=== PATIENT | female | born 1940 | race Caucasian/White ===

== ENCOUNTER 2016-07-22 07:52 | Day surgery (SDC) | payer OTHER ==
[~2016-07-22] VITALS: Ht 165.1 cm; Wt 71.7 kg
[~2016-07-22 07:52] MED LIST: BP MED; FLUT12AE5
[2016-07-22] MEDS ORDERED: CEFAZOLIN SOD 1 GM in D5W 50 ML IV ONE (08:00)
[2016-07-22 08:26] VITALS: O2SAT 97
[2016-07-22] MEDS ORDERED: PROPOFOL 200MG/ 20ML VIAL (DIPRIVAN) IV ONE (11:42)
[2016-07-22] MEDS ORDERED: SEVOFLURANE 15 MIN GAS INH ONE (11:42)
[2016-07-22] MEDS ORDERED: ONDANSETRON HCL 4 MG/2 ML VIAL IVP ONE (11:42)
[2016-07-22] MEDS ORDERED: MIDAZOLAM HCL 5 MG/5 ML VIAL IVP ONE (11:42)
[2016-07-22] MEDS ORDERED: fentaNYL CITRATE/PF 100 MCG/2 ML AMP IVP ONE (11:42)
[2016-07-22] MEDS ORDERED: BUPIVACAINE /EPINEPHRINE/PF 0.25% 30 ML VIAL INJ ONE (11:42)
[2016-07-22] MEDS ORDERED: MEPERIDINE HCL/PF 100 MG/ML AMP IM ONE (11:42)
[2016-07-22] MEDS ORDERED: METOCLOPRAMIDE HCL 10 MG/2 ML VIAL IVP ONE (11:42)
[2016-07-22] MEDS ORDERED: LR 1,000 ML IV ONE (12:43)
[2016-07-22] MEDS ORDERED: fentaNYL CITRATE/PF 100 MCG/2 ML AMP IVP PRN (12:45)
[2016-07-22] MEDS ORDERED: ONDANSETRON HCL 4 MG/2 ML VIAL IVP PRN ×2 (12:45)
[2016-07-22] MEDS ORDERED: NALOXONE HCL 0.4 MG/ML AMP (NARCAN) IVP PRN (12:45)
[2016-07-22] MEDS ORDERED: NALBUPHINE HCL 10 MG/ML AMP IVP PRN (12:45)
[2016-07-22] MEDS ORDERED: DIPHENHYDRAMINE INJ 50 MG/ML VIAL IVP PRN (12:45)
[2016-07-22] MEDS ORDERED: ePHEDrine sulfate 50 MG/ML VIAL IVP PRN (12:45)
[2016-07-22] MEDS ORDERED: HYDROmorphone 1 MG INJ. 1 MG/ML AMPUL IVP PRN (13:15)
[2016-07-22] MEDS ORDERED: HYDROcodone/ACETAMIN 5-325 MG TAB (NORCO/ VICODIN) PO PRN ×2 (13:15)
[2016-07-22 14:30] VITALS: BP 129/72; PULSE 87; RESP 16
[2016-07-22] MEDS ORDERED: D5/0.45 NS 1,000 ML IV SCH (15:30)
== END 2016-07-22 16:00 | disposition home or self-care (01) ==
LOC: SMU 07:52 → SDS 07:52
PROVIDERS: ATTEND Colon & Rectal Surgery
DX: C50.212 Malignant neoplasm of upper-inner quadrant of left female breast (principal); J44.9 Chronic obstructive pulmonary disease, unspecified; J45.909 Unspecified asthma, uncomplicated; I10 Essential (primary) hypertension; K21.9 Gastro-esophageal reflux disease without esophagitis
CPT/HCPCS: 19281; 19301; 38500; 78195; 88305; 88307; 88329; 88333; 88342; A9541; J0690; J2175; J2250; J2405; J2704; J2765; J3010; J3490; J7060; J7120; 19081

== ENCOUNTER 2022-12-05 16:32 | Inpatient (IN) | payer OTHER ==
[~2022-12-05] VITALS: Ht 160 cm; Wt 62.6 kg
--- NOTE | 2022-12-05 16:38 | NUR ---
Patient to ER bed 04 to gown for evaluation. Side rails up.
--- NOTE | 2022-12-05 16:46 | NUR ---
ER Dr.Dela Faust at bedside examining patient.
[2022-12-05 17:09] VITALS: BP_SYST 155; PULSE 89; RESP 18; TEMP 98.3; O2SAT 98
[2022-12-05 17:38] LABS: BASOPHILS # (AUTO) 0.1 K/uL (0.0-0.2); EOSINOPHILS # (AUTO) 0.6 K/uL (0.0-0.4); HEMATOCRIT 29.5 % (36-48); HEMOGLOBIN 10.1 g/dL (12.0-16.0); MEAN CORPUSCULAR HEMOGLOBIN 31 pg (27-31); MEAN CORPUSCULAR HGB CONC 34 % (32-36); MEAN CORPUSCULAR VOLUME 90 fL (79.0-98.0); MONOCYTES # (AUTO) 0.8 K/uL (0.0-1.0); MONOCYTES % (AUTO) 7.3 % (1.7-9.3); NEUTROPHILS # (AUTO) 8.5 K/uL (1.8-7.7); NEUTROPHILS % (AUTO) 77.7 % (40.0-70.0); PLATELET COUNT (AUTO) 181 K/uL (130-430); RED BLOOD CELL COUNT(AUTO) 3.27 MIL/uL (4.2-6.2); RED CELL DISTRIBUTION WIDTH 15.1 % (9.0-15.0); WHITE BLOOD COUNT (AUTO) 10.9 K/uL (4.8-10.8)
[2022-12-05 17:54] LABS: ALANINE AMINOTRANSFERASE 15 U/L (12-78); ALBUMIN 3.3 g/dL (3.4-4.8); ANION GAP 7 (5-15); ASPARTATE AMINOTRANSFERASE 16 U/L (10-37); CHLORIDE 103 mmol/L (98-107); CREATININE 0.99 mg/dL (0.55-1.30); GLUCOSE 115 mg/dL (74-106); TOTAL BILIRUBIN 0.5 mg/dL (0.0-1.0); UREA NITROGEN, BLOOD 16 mg/dL (8-21)
[2022-12-05] MEDS ORDERED: CARV12.548 PO (17:58)
[2022-12-05] MEDS ORDERED: ALBMDI INH (17:58)
[2022-12-05] MEDS ORDERED: ASPI-1393 PO (17:58)
[2022-12-05] MEDS ORDERED: [UNRECOGNIZED DRUG - CODE] PO (17:58)
[2022-12-05] MEDS ORDERED: ROSU10TA2 PO (17:58)
[2022-12-05] MEDS ORDERED: TORS20TA23 PO (17:58)
[2022-12-05] MEDS ORDERED: LOSA50TA3 PO (17:58)
[2022-12-05] MEDS ORDERED: FERR236T3 PO (17:58)
[2022-12-05] MEDS ORDERED: PRO40 PO (17:58)
--- NOTE | 2022-12-05 17:58 | NUR ---
Medication reconciliation completed with information provided by patient . Any prior medication reconciliation on file was reviewed and corrected.
--- NOTE | 2022-12-05 18:20 | NUR ---
[address] WAY VELAZQUEZ INSERTED WITH APPROX 800 DARK RED URINE OUTPUT, BLADDER IRRIGATION STARTED ORDERED. MINIMAL SMALL CLOTS NOTED, PT TOLERATING WELL.
--- NOTE | 2022-12-05 18:36 | NUR ---
DR MEDELLIN INFORMED OF PT'S DISCOMFORT AND HIGH BP 176/89
[2022-12-05 18:43] LABS: BILIRUBIN,URINE NEGATIVE (NEGATIVE); BLOOD, URINE 3+ (NEGATIVE); CLARITY/URINE TURBID (CLEAR); COLOR,URINE RED (YELLOW); GLUCOSE,URINE NEGATIVE (NEGATIVE); KETONES,URINE NEGATIVE (NEGATIVE); LEUKOCYTE ESTERASE ,URINE TRACE (NEGATIVE); NITRITE, URINE NEGATIVE (NEGATIVE); PH,URINE 6.5 (5.0-8.0); PROTEIN URINE 3+ (NEGATIVE); UROBILINOGEN,URINE 0.2 (0.2-1.0)
[2022-12-05] MEDS ORDERED: ONDANSETRON HCL 4 MG/2 ML VIAL IVP ONE (19:00)
[2022-12-05] MEDS ORDERED: MORPHINE 4 MG INJ. 4 MG/ML VIAL IVP ONE (19:00)
--- NOTE | 2022-12-05 19:09 | NUR ---
REPORT GIVEN TO YUE RN, VITALS AND UPDATED STATUS INFORMED.
--- NOTE | 2022-12-05 19:24 | NUR ---
THREE WAY VELAZQUEZ CLOGGED, VELAZQUEZ UNCLOGGED AT THIS TIME AND FLOWING
--- NOTE | 2022-12-05 19:24 | NUR ---
ASSUMED PATIENT CARE AT THIS TIME
[2022-12-05] MEDS ORDERED: hydrALAZINE HCL 20 MG/ML VIAL IVP ONE (19:30)
[2022-12-05] MEDS ORDERED: ENALAPRILAT DIHYDRATE 1.25 MG/ML VIAL IVP ONE (19:30)
[2022-12-05 19:38] LABS: BACTERIA,URINE MODERATE /HPF (None Seen); MUCUS,URINE None Seen /LPF (None Seen); RBC,URINE >100 /HPF (0-3)
--- NOTE | 2022-12-05 19:53 | NUR ---
Admit bed requested Patient will be admitted to care of . Admitted to unit. Diagnosis Inpatient (Yes or No) Observation (Yes or No) Orientation concerns or request close to nursing station (Yes or No) Covid Status On vent or bipap Isolation requirements Needs a sitter From Home (Yes or if No enter name of facility) Requires Dialysis (Yes or No) Med Rec Completed (Yes of No)
--- NOTE | 2022-12-05 20:00 | NUR ---
Report received from previous Nurse for continuity of care.
--- NOTE | 2022-12-05 20:13 | NUR ---
Admit bed requested Patient will be admitted to care of Dr.. FRIAS Admitted to unit. [facility] Diagnosis HEMATURIA, BLADDER CANCER Inpatient (Yes or No)YES Observation (Yes or No) NO Orientation concerns or request close to nursing station (Yes or No) NO Covid Status N/A On vent or bipap NO Isolation requirements NO Needs a sitter NO From Home (Yes or if No enter name of facility) YES Requires Dialysis (Yes or No) NO Med Rec Completed (Yes of No) YES
[2022-12-05] MEDS ORDERED: ACETAMINOPHEN 325 MG TABLET PO PRN (20:30)
[2022-12-05] MEDS ORDERED: NALOXONE HCL 0.4 MG/ML AMP (NARCAN) IVP PRN ×2 (20:30)
[2022-12-05] MEDS ORDERED: HYDROcodone/ACETAMIN 5-325 MG TAB (NORCO/ VICODIN) PO PRN (20:30)
[2022-12-05] MEDS ORDERED: LORazepam 2 MG/ML VIAL IVP PRN (20:30)
[2022-12-05] MEDS ORDERED: ONDANSETRON HCL 4 MG/2 ML VIAL IVP PRN (20:30)
[2022-12-05] MEDS: cefTRIAXone 1 GM IVPB PREMIX 50 ML IV SCH (20:38)
[2022-12-05] MEDS: ALBUTEROL SULFATE 0.083% 2.5 MG/3 ML VIAL.NEB INH SCH (20:42)
[2022-12-05] MEDS ORDERED: BUDESONIDE 0.5 MG/2 ML AMPUL.NEB INH SCH (21:00)
[2022-12-05] MEDS: CARVEDILOL 12.5 MG TABLET (COREG) PO SCH (21:00)
[2022-12-05] MEDS ORDERED: ROSUVASTATIN CALCIUM 5 MG/TAB (CRESTOR) PO SCH (21:00)
[2022-12-05] MEDS: ATORVASTATIN 20 MG TABLET PO SCH (21:00)
[2022-12-05] MEDS: NORMAL SALINE 5 ML DISP.SYRIN IVF SCH (22:10)
--- NOTE | 2022-12-05 22:11 | NUR ---
RT CALLED FOR NEBULIZING TREATMENT, IVP ZOFRAN GIVEN FOR TWO EPISODES OF VOMITING, HOLDING PO MEDS TILL N/V HAS CEASED
--- NOTE | 2022-12-05 23:26 | NUR ---
Patient will be admitted to care of [facility]. Admitted to [facility] unit. Will go to room 132C. Belongings list completed. Complete and up to date summary report printed. SBAR report to be given at bedside with opportunity for questions.
--- NOTE | 2022-12-05 23:26 | NUR ---
BEDSIDE REPORT GIVEN TO REBECCA STOCK OF [facility]
--- NOTE | 2022-12-05 23:30 | NUR ---
Patient arrived from ED to room 132C for c/o urinary issues. Patient found to have CBI with clear, light yellow/pink urine adequate output of 2000 mL. Patient blood pressure lowered from ED to room 132C. Patient able to move from gurney to bed. She had some episodes of nausea upon arrival. Checked orders and will administer medications as ordered. Alert and oriented x4. No neuro deficits. Respiration even and unlabored. No shortness of breath. No active complaints of pain at the moment. Will continue to monitor. Call light within reach.
[2022-12-06] VITALS (9 sets, daily range): BP systolic 124–154; PULSE 67–93; RESP 18–20; TEMP 97.3–99.6; O2SAT 92–98
[2022-12-06] MEDS: ALBUTEROL SULFATE 0.083% 2.5 MG/3 ML VIAL.NEB INH SCH ×4 (01:00→19:00)
--- NOTE | 2022-12-06 05:34 | NUR ---
ID CONSULT CONSULT FOR DR. AGRAWAL WAS CALLED, RE LEUKOCYTOSI S/W AARTI ALSO FAXED FACE SHEET
[2022-12-06 05:37] LABS: BASOPHILS # (AUTO) 0.1 K/uL (0.0-0.2); EOSINOPHILS # (AUTO) 0.3 K/uL (0.0-0.4); EOSINOPHILS % (AUTO) 2.4 % (0.0-4.0); HEMOGLOBIN 10.8 g/dL (12.0-16.0); LYMPHOCYTES # (AUTO) 0.7 K/uL (1.0-5.5); LYMPHOCYTES % (AUTO) 6.3 % (20.5-51.5); MEAN CORPUSCULAR HEMOGLOBIN 31 pg (27-31); MEAN CORPUSCULAR HGB CONC 34 % (32-36); MEAN CORPUSCULAR VOLUME 90 fL (79.0-98.0); MONOCYTES # (AUTO) 0.7 K/uL (0.0-1.0); MONOCYTES % (AUTO) 6.6 % (1.7-9.3); NEUTROPHILS # (AUTO) 8.7 K/uL (1.8-7.7); NEUTROPHILS % (AUTO) 83.7 % (40.0-70.0); PLATELET COUNT (AUTO) 182 K/uL (130-430); RED BLOOD CELL COUNT(AUTO) 3.55 MIL/uL (4.2-6.2); RED CELL DISTRIBUTION WIDTH 15.1 % (9.0-15.0); WHITE BLOOD COUNT (AUTO) 10.4 K/uL (4.8-10.8)
[2022-12-06 06:04] LABS: ALANINE AMINOTRANSFERASE 12 U/L (12-78); ALBUMIN 3.3 g/dL (3.4-4.8); ANION GAP 8 (5-15); ASPARTATE AMINOTRANSFERASE 17 U/L (10-37); CALCIUM 9.2 mg/dL (8.4-11.0); CHLORIDE 101 mmol/L (98-107); GLUCOSE 131 mg/dL (74-106); TOTAL BILIRUBIN 0.4 mg/dL (0.0-1.0); UREA NITROGEN, BLOOD 15 mg/dL (8-21)
--- NOTE | 2022-12-06 06:45 | NUR ---
Patient stable throughout the whole shift. No active distress noted.
--- NOTE | 2022-12-06 06:49 | NUR ---
Endorsed to day shift RN for continuity of care. Patient in stable condition. No distress noted.
[2022-12-06] MEDS: BUDESONIDE 0.5 MG/2 ML AMPUL.NEB INH SCH ×2 (07:00→19:00)
--- NOTE | 2022-12-06 07:58 | NUR ---
3rd bag of irrigation bag used and 2000 ml urine out.
--- NOTE | 2022-12-06 08:00 | NUR ---
OPENING NOTE PT RESTING IN BED, BREATHING NON-LABORED AND REGULAR ON ROOM AIR. DENIES ANY ACUTE DISTRESS OR PAIN. CONTINUOUS BLADDER IRRIGATION NOTED. CLEAR VELAZQUEZ BAG NOTED-NO KINK OR BLOCKAGE NOTED. NO MORE S/S HEMATURIA. IV S/L REMAIN INTACT AND CLEAN. BED IS LOCKED AND AT LOW POSITION. CALL LIGHT WITHIN REACH. WILL CONT TO MONITOR FOR ANY CHANGES
--- NOTE | 2022-12-06 08:16 | NUR ---
CONSULTATION PAGED REASON FOR CONSULTATION: HEMATURIA, BLADDER CA WAS CONSULT CALLED? Y PERSON WHO WAS NOTIFIED: VOICEMAIL SENT CONSULTING PHYSICIAN: GAETANO DAMON [place] SPECIALTY: UROLOGY [facility] PHONE NUMBER: [phone] REQUESTING PHYSICIAN: STEPHEN SNIDER
--- NOTE | 2022-12-06 09:00 | NUR ---
LOCOMOTIVE FIRER/FIREMAN(UROLOGY) CALLED; RUTH LOCOMOTIVE FIRER/FIREMAN FROM 'S GROUP CALLED REGARDING PT. QUESTIONS ANSWERED. SHE WILL BE HERE TONIGHT OR TOMORROW. BLADDER IRRIGATION NEEDED ORDER RECEIVED.
[2022-12-06] MEDS: ASPIRIN 81 MG TABLET(ECOTRIN) PO SCH (10:04)
[2022-12-06] MEDS: PANTOPRAZOLE SODIUM 40 MG TAB PO SCH (10:04)
[2022-12-06] MEDS: CARVEDILOL 12.5 MG TABLET (COREG) PO SCH ×2 (10:04→22:06)
[2022-12-06] MEDS: LOSARTAN POTASSIUM 50 MG TABLET (COZAAR) PO SCH (10:04)
[2022-12-06] MEDS: KETOROLAC TROMETHAMINE 10 MG TABLET (TORADOL) PO SCH (10:05)
--- NOTE | 2022-12-06 11:25 | NUR ---
NOTES; PT RESTING IN BED, AT BEDSIDE. VELAZQUEZ DRAINING BY GRAVITY. NO BLOOD TINGED URINE NOTED. DENIES ANY DISCOMFORT OR PAIN. SAFETY PRECAUTION IN PLACE. WILL CONT TO MONITOR FOR ANY CHANGES.
--- NOTE | 2022-12-06 12:15 | NUR ---
AT BEDSIDE, ASSESSING PT. AT BEDSIDE. ANSWERED ALL QUESTIONS.
[2022-12-06] MEDS: NORMAL SALINE 5 ML DISP.SYRIN IVF SCH ×2 (14:00→22:07)
--- NOTE | 2022-12-06 15:00 | NUR ---
COMMUNITY LIVING SPECIALIST(UROLOGY) CAME TO ASSESS PT. AT BEDSIDE. NEW ORDER NOTED.
--- NOTE | 2022-12-06 17:26 | NUR ---
NOTES; ASKED IF PT CAN HAVE A HABIT HAMBURGER. EDUCATED AND PT REGARDING THE CARDIAC/LOW FAT/ LOW BRENNON NOTED. AND PT VERBALIZED UNDERSTANDING. PT SAID SHE FINISHED MOST OF HER LUNCH MEAL. GOOD APPETITE NOTED.
--- NOTE | 2022-12-06 18:58 | NUR ---
CLOSING NOTE PT RESTING IN BED, BREATHING NON-LABORED AND REGULAR ON ROOM AIR. DENIES ANY ACUTE DISTRESS OR PAIN. FAMILY MEMBERS AT BEDSIDE. CLEAR TO YELLOWISH URINE IN VELAZQUEZ BAG NOTED. IV S/L REMAIN INTACT AND CLEAN. BED IS LOCKED AND AT LOW POSITION. CALL LIGHT WITHIN REACH. WILL ENDORSE CARE TO TRAVEL RN NURSE.
[2022-12-06] MEDS: ATORVASTATIN 20 MG TABLET PO SCH (22:05)
[2022-12-06] MEDS: cefTRIAXone 1 GM IVPB PREMIX 50 ML IV SCH (22:07)
[2022-12-07] MEDS: ALBUTEROL SULFATE 0.083% 2.5 MG/3 ML VIAL.NEB INH SCH ×4 (01:00→19:00)
[2022-12-07 01:37] VITALS: BP_SYST 148; PULSE 88; RESP 18; TEMP 98.1; O2SAT 93
[2022-12-07 05:26] LABS: BASOPHILS # (AUTO) 0.1 K/uL (0.0-0.2); BASOPHILS % (AUTO) 0.9 % (0.0-2.0); EOSINOPHILS # (AUTO) 0.4 K/uL (0.0-0.4); EOSINOPHILS % (AUTO) 3.5 % (0.0-4.0); HEMATOCRIT 29.6 % (36-48); HEMOGLOBIN 9.8 g/dL (12.0-16.0); LYMPHOCYTES # (AUTO) 1.1 K/uL (1.0-5.5); LYMPHOCYTES % (AUTO) 10.4 % (20.5-51.5); MEAN CORPUSCULAR HEMOGLOBIN 30 pg (27-31); MEAN CORPUSCULAR HGB CONC 33 % (32-36); MEAN CORPUSCULAR VOLUME 91 fL (79.0-98.0); MONOCYTES # (AUTO) 0.9 K/uL (0.0-1.0); MONOCYTES % (AUTO) 8.5 % (1.7-9.3); NEUTROPHILS % (AUTO) 76.7 % (40.0-70.0); PLATELET COUNT (AUTO) 190 K/uL (130-430); RED BLOOD CELL COUNT(AUTO) 3.26 MIL/uL (4.2-6.2); RED CELL DISTRIBUTION WIDTH 15.5 % (9.0-15.0); WHITE BLOOD COUNT (AUTO) 10.5 K/uL (4.8-10.8)
[2022-12-07 05:46] LABS: ANION GAP 6 (5-15); CALCIUM 8.8 mg/dL (8.4-11.0); CHLORIDE 102 mmol/L (98-107); CREATININE 1.26 mg/dL (0.55-1.30); GLUCOSE 125 mg/dL (74-106); UREA NITROGEN, BLOOD 23 mg/dL (8-21)
--- NOTE | 2022-12-07 06:01 | NUR ---
Patient is alert, able to make needs known, vitals are stable, no complaints of pain or discomfort. Leblanc catheter to gravity drainage, no hematuria present, urine color is hardik. No kinks are in the catheter tubing, bag is not on the floor, catheter care is provided. Patient is assisted with turning and repositioning every two hours, no new skin breakdown noted.
[2022-12-07 06:08] LABS: ERYTHROCYTE SEDIMENTATION RATE 13 MM/HR (0-20)
[2022-12-07] MEDS: NORMAL SALINE 5 ML DISP.SYRIN IVF SCH ×4 (06:46→22:07)
[2022-12-07] MEDS: BUDESONIDE 0.5 MG/2 ML AMPUL.NEB INH SCH ×2 (07:00→19:00)
[2022-12-07 08:00] VITALS: BP_SYST 160; PULSE 79; RESP 16; TEMP 98; O2SAT 98
--- NOTE | 2022-12-07 08:10 | NUR ---
PATIENT AWAKE AND ALERT. PATIENT REFUSED HHN TX. NO SOB OR DISTRESS NOTED. WILL CONTINUE TO MONITOR PATIENT.
[2022-12-07] MEDS: LOSARTAN POTASSIUM 50 MG TABLET (COZAAR) PO SCH (10:26)
[2022-12-07] MEDS: CARVEDILOL 12.5 MG TABLET (COREG) PO SCH ×2 (10:26→22:09)
[2022-12-07] MEDS: ASPIRIN 81 MG TABLET(ECOTRIN) PO SCH (10:27)
[2022-12-07] MEDS: PANTOPRAZOLE SODIUM 40 MG TAB PO SCH (10:28)
[2022-12-07] MEDS: KETOROLAC TROMETHAMINE 10 MG TABLET (TORADOL) PO SCH (10:29)
[2022-12-07 12:00] VITALS: BP_SYST 154; PULSE 76; RESP 18; TEMP 98.2; O2SAT 94
[2022-12-07 16:00] VITALS: BP_SYST 163; PULSE 71; RESP 18; TEMP 98.2; O2SAT 95
[2022-12-07 20:00] VITALS: BP_SYST 149; PULSE 83; RESP 18; TEMP 97.6; O2SAT 93; O2SAT 95; O2SAT 96
[2022-12-07] MEDS: cefTRIAXone 1 GM IVPB PREMIX 50 ML IV SCH (22:08)
[2022-12-07] MEDS: ATORVASTATIN 20 MG TABLET PO SCH (22:09)
[2022-12-08] VITALS (7 sets, daily range): BP systolic 136–151; PULSE 79–95; RESP 16–20; TEMP 97.5–98.4; O2SAT 93–98
[2022-12-08] MEDS: ALBUTEROL SULFATE 0.083% 2.5 MG/3 ML VIAL.NEB INH SCH ×4 (00:54→18:40)
[2022-12-08] MEDS: NORMAL SALINE 5 ML DISP.SYRIN IVF SCH ×3 (06:59→22:15)
[2022-12-08] MEDS: BUDESONIDE 0.5 MG/2 ML AMPUL.NEB INH SCH ×2 (07:00→18:40)
--- NOTE | 2022-12-08 07:40 | NUR ---
Patient is awake, alert, resting well, no c/o pain or discomfort. Leblanc to gravity drainage, adequate urine, clear yellow.Patient can turn and reposition self, condition stable.
[2022-12-08] MEDS: ASPIRIN 81 MG TABLET(ECOTRIN) PO SCH (08:56)
[2022-12-08] MEDS: LOSARTAN POTASSIUM 50 MG TABLET (COZAAR) PO SCH (08:57)
[2022-12-08] MEDS: PANTOPRAZOLE SODIUM 40 MG TAB PO SCH (08:57)
[2022-12-08] MEDS: KETOROLAC TROMETHAMINE 10 MG TABLET (TORADOL) PO SCH ×3 (08:58→12:14)
[2022-12-08] MEDS: CARVEDILOL 12.5 MG TABLET (COREG) PO SCH ×2 (09:04→22:14)
--- NOTE | 2022-12-08 15:47 | NUR ---
Dietitian Recommendations * Continue Cardiac diet LP, MS, RD Please refer to Nutrition Assessment for details. Addendum: 12/08/22 at [address] Amended: Links added.
--- NOTE | 2022-12-08 20:31 | NUR ---
PATIENT REQUESTING TO GO HOME ALL DAY. NO DISCHARGE ORDERS OF NOW AT BEDSIDE MOST OF DAY WITH A FEW OTHER FAMILY MEMBERS. UP OUT OF BED ASSISTED TO GO OUTSIDE TO PATIO AREA TOLERATED ACTIVITY FAIR. CONTINUES TO BE WEAK IN BED NEEDING HELP WITH MOVING CONTINUES WITH VELAZQUEZ CARE. VELAZQUEZ CARE PERFORMED BARRIER CARE APPLIED AROUND AREA WITH VELAZQUEZ STARTING TO GET SLIGHT RED.
[2022-12-08] MEDS: ATORVASTATIN 20 MG TABLET PO SCH (22:14)
[2022-12-08] MEDS: cefTRIAXone 1 GM IVPB PREMIX 50 ML IV SCH (22:15)
[2022-12-08] MEDS: HYDROcodone/ACETAMIN 10-325 MG TAB PO PRN (22:16)
[2022-12-09] VITALS (12 sets, daily range): BP systolic 143–188; PULSE 71–84; RESP 14–18; TEMP 97.2–99; O2SAT 94–96
--- NOTE | 2022-12-09 | NUR ---
NORCO TABLET po given for acute general pain & helpful no adverse reaction noted / .
[2022-12-09] MEDS: ALBUTEROL SULFATE 0.083% 2.5 MG/3 ML VIAL.NEB INH SCH ×4 (01:00→19:00)
--- NOTE | 2022-12-09 05:45 | NUR ---
Hourly Rounding patient is Resting is verbally Responsive assist for position change skin dry warm FALL MEASURES implemented call goddard given to patient .
[2022-12-09] MEDS: NORMAL SALINE 5 ML DISP.SYRIN IVF SCH ×2 (06:56→14:49)
[2022-12-09] MEDS: BUDESONIDE 0.5 MG/2 ML AMPUL.NEB INH SCH ×2 (07:00→19:00)
--- NOTE | 2022-12-09 07:47 | NUR ---
Opening Nurse Notes: Patient A/LO X4. Patient speaks Finnish. RAC 20G SL. Patient relaxing quietly in bed. Patient breathing even on room air. Patient has a Leblanc draining yellow to gravity. No pain, no SOB, no distress. Call light is within reach, bed in lowest position. Will continue with plan of care.
[2022-12-09] MEDS: ASPIRIN 81 MG TABLET(ECOTRIN) PO SCH (08:30)
[2022-12-09] MEDS: PANTOPRAZOLE SODIUM 40 MG TAB PO SCH (08:30)
[2022-12-09] MEDS: LOSARTAN POTASSIUM 50 MG TABLET (COZAAR) PO SCH (08:30)
[2022-12-09] MEDS: CARVEDILOL 12.5 MG TABLET (COREG) PO SCH ×2 (08:31→17:24)
[2022-12-09] MEDS: HYDROcodone/ACETAMIN 10-325 MG TAB PO PRN ×2 (10:14→15:52)
--- NOTE | 2022-12-09 12:15 | NUR ---
Afternoon Nurse Notes: Patient lying in bed watching TV quietly. No SOB, mild distress, mild pain. I have provided pain medication to patient and will continue to monitor pain. Call light within reach. Bed locked and in lowest position. Will continue with plan of care.
[2022-12-09] MEDS ORDERED: CIPR250T4 PO (15:16)
--- NOTE | 2022-12-09 16:20 | NUR ---
Late Afternoon Nurse Notes: Patient lying in bed quietly. Working to get patient discharged tonight. Dr. Farrah Sims will meet with family to discuss discharge and results. Pitcher of water is at bedside. No SOB, no distress, no pain. Call light within reach. Bed locked and in lowest position. Will continue with plan of care.
--- NOTE | 2022-12-09 16:45 | NUR ---
Nurse Notes: Dr. Farrah Sims paged due to high BP and discharge. Further instructions needed.
--- NOTE | 2022-12-09 16:53 | NUR ---
Nurse Notes: MONTRELL Westfall the wound care nurse did not see patient today. Waiting for his visit and directions before I do anything. Addendum: 12/09/22 at 1654 by Aravind Reyes LVN Wrong patient. Disregard above.
--- NOTE | 2022-12-09 16:55 | NUR ---
[facility]:
--- NOTE | 2022-12-09 17:09 | NUR ---
Nurse Notes: Dr. Farrah Sims paged a second time. Patient's high BP is 158/74, HR 76. Unable to discharge at this time due to high BP. Charge nurse is aware. Addendum: 12/09/22 at 1718 [address] Arav[address] Reyes LVN Dr. Farrah Sims returned call. Ordered Clonidine 0.1 mg for BP over 160 PRN Addendum: 12/09/22 at 1723 [address]yes LVN Dr. Farrah Sims also ordered me to give the patient her 9pm Coreg now to see if that works before giving Clonidine.
[2022-12-09] MEDS ORDERED: cloNIDine HCL 0.1 MG TABLET PO PRN (17:30)
--- NOTE | 2022-12-09 18:40 | NUR ---
Nurse Notes: Dr. Bethany bee. Addendum: 12/09/22 at 1843 by Aravind Reyes LVN Nurse Notes: Dr. Farrah Sims returned call and said it was acceptable to discharge patient with BP of 149/70 HR 84. Discharge will proceed as ordered.
--- NOTE | 2022-12-09 19:25 | NUR ---
Nurse Notes: Dr. Reyez's exchange called to verify removal of or leave in of patient's Leblanc. Waiting for further instructions. Handed off to warehouse shift supervisor MONTRELL Goldstein.
--- NOTE | 2022-12-09 19:25 | NUR ---
Closing Nurse Notes: Patient A/LO X4. Patient relaxing quietly in bed. Patient breathing even on room air. Patient has a Leblanc draining yellow to gravity. No pain, no SOB, no distress. Call light is within reach, bed in lowest position. Will continue with plan of care. Patient and care endorsed to mini shifter MONTRELL Goldstein. Endorsed that patient is ready for DC but must have Leblanc removal cleared with urology.
--- NOTE | 2022-12-09 20:30 | NUR ---
pt.d/c home.v/s attended;assessed p/t d/c.note b/p status wnl.no c/o pain,nausea..rosanna:urology paged x3; r/e:indwelling amezcua cathirigation;cath in place.to posit q's to ;amezcua cath to remain in place or d/c p/t dc home.;rosanna was not available.the flat knitter;spencer presented to pt.w/in pt's hospital stay;assessed the pt.no notes per ;rosanna manifested.i paged flat knitter;katerinax2 [email or web address].no return paged;call.pt.requested the amezcua cath to be removed.per the pt's requests amezcua cath d.c.pt/family apprised;educated to note if hematuria present pt.to return to er-dept.all pt's pertanences accounted for.d/c paper work attended per day shift;fanny.pt.wheeled to car.in presence of .
== END 2022-12-09 20:50 | disposition home health service (06) | DRG 872 ==
LOC: SED 16:32 → SMU 19:49
PROVIDERS: ADMIT Specialist; ATTEND Specialist
DX: A41.9 Sepsis, unspecified organism (principal); N39.0 Urinary tract infection, site not specified; E88.09 Other disorders of plasma-protein metabolism, not elsewhere classified; K44.9 Diaphragmatic hernia without obstruction or gangrene; R31.0 Gross hematuria; I25.10 Atherosclerotic heart disease of native coronary artery without angina pectoris; D72.829 Elevated white blood cell count, unspecified; D64.9 Anemia, unspecified; R73.9 Hyperglycemia, unspecified; B96.20 Unspecified Escherichia coli [E. coli] as the cause of diseases classified elsewhere; C67.9 Malignant neoplasm of bladder, unspecified; Z79.01 Long term (current) use of anticoagulants; Z79.891 Long term (current) use of opiate analgesic; Z79.899 Other long term (current) drug therapy; Z79.82 Long term (current) use of aspirin
CPT/HCPCS: 36415; 76376; 80048; 80053; 81000; 85025; 85651-TC; 86886; 86900; 86901; 87040; 87086; 94640; 94760; 96374; 96375; 96376; 96379; 99285; J0360; J0696; J2270; J2405; J7613; J7626